=== PATIENT | male | born 1950 | race Caucasian/White ===

== ENCOUNTER 2020-09-24 09:24 | Outpatient (CLI) | payer MEDICARE | END 2020-09-24 09:25 | disposition home or self-care (01) | LOC: CSHMRI 09:24 | PROVIDERS: ATTEND Nurse Practitioner | DX: M47.816 Spondylosis without myelopathy or radiculopathy, lumbar region (principal); S32.000A Wedge compression fracture of unspecified lumbar vertebra, initial encounter for closed fracture; M48.062 Spinal stenosis, lumbar region with neurogenic claudication; M62.49 Contracture of muscle, multiple sites; S32.010A Wedge compression fracture of first lumbar vertebra, initial encounter for closed fracture | CPT/HCPCS: 72148 ==

== ENCOUNTER 2022-04-08 08:54 | Day surgery (SDC) | payer MEDICARE ==
[2022-04-06 14:57] VITALS: BMI 38.3
[2022-04-08] MEDS ORDERED: PROPOFOL 20 ML ONE ×3 (11:20→12:10)
== END 2022-04-08 12:48 | disposition home or self-care (01) ==
LOC: CSHSDC 08:54
PROVIDERS: ATTEND Internal Medicine Gastroenterology
PROC: 0DBL8ZZ Excision of Transverse Colon, Via Natural or Artificial Opening Endoscopic (ICD-10-PCS; principal; 2022-04-08)
DX: Z12.11 Encounter for screening for malignant neoplasm of colon (principal); D37.4 Neoplasm of uncertain behavior of colon; K62.1 Rectal polyp; K64.8 Other hemorrhoids; K57.30 Diverticulosis of large intestine without perforation or abscess without bleeding; K21.9 Gastro-esophageal reflux disease without esophagitis; I10 Essential (primary) hypertension; I25.10 Atherosclerotic heart disease of native coronary artery without angina pectoris; E78.5 Hyperlipidemia, unspecified; E66.9 Obesity, unspecified; Z95.5 Presence of coronary angioplasty implant and graft; Z68.38 Body mass index [BMI] 38.0-38.9, adult; Z86.010 Personal history of colon polyps; Z85.038 Personal history of other malignant neoplasm of large intestine
CPT/HCPCS: 88305; J2704

== ENCOUNTER 2022-05-20 06:32 | Day surgery (SDC) | payer MEDICARE ==
[2022-05-18 16:15] VITALS: BMI 39.4
[2022-05-20] MEDS ORDERED: Lidocaine 2% MPF 10 ML AMP (For Epidural Use) ONE (07:13)
[2022-05-20] MEDS ORDERED: PROPOFOL 60 ML ONE (07:13)
[2022-05-20] MEDS ORDERED: Metoprolol Tartrate 5 MG/5 ML VIAL ONE (07:36)
[2022-05-20] MEDS ORDERED: PHENYLEPHRINE-NS 100 MCG/ML 10 ML SYRINGE ONE (08:37)
== END 2022-05-20 09:28 | disposition home or self-care (01) ==
LOC: CSHSDC 06:32
PROVIDERS: ATTEND Internal Medicine Gastroenterology
PROC: 0DBL8ZZ Excision of Transverse Colon, Via Natural or Artificial Opening Endoscopic (ICD-10-PCS; principal; 2022-05-20)
DX: D12.3 Benign neoplasm of transverse colon (principal); K64.9 Unspecified hemorrhoids; I10 Essential (primary) hypertension; E78.5 Hyperlipidemia, unspecified; I25.10 Atherosclerotic heart disease of native coronary artery without angina pectoris; K21.9 Gastro-esophageal reflux disease without esophagitis; E66.9 Obesity, unspecified; Z88.2 Allergy status to sulfonamides; Z88.8 Allergy status to other drugs, medicaments and biological substances; Z68.39 Body mass index [BMI] 39.0-39.9, adult
CPT/HCPCS: 88305; J2704

== ENCOUNTER 2024-03-07 10:11 | Outpatient (CLI) | payer MEDICARE | END 2024-03-07 10:12 | disposition home or self-care (01) | LOC: CSHRAD 10:11 | PROVIDERS: ATTEND Nurse Practitioner | DX: Z01.818 Encounter for other preprocedural examination (principal); M23.91 Unspecified internal derangement of right knee; M25.561 Pain in right knee; M62.461 Contracture of muscle, right lower leg; M17.11 Unilateral primary osteoarthritis, right knee | CPT/HCPCS: 71045 ==

== ENCOUNTER 2024-03-28 08:24 | Outpatient (CLI) | payer MEDICARE | END 2024-03-28 08:25 | disposition home or self-care (01) | LOC: CSHMRI 08:24 | PROVIDERS: ATTEND Nurse Practitioner | DX: M23.91 Unspecified internal derangement of right knee (principal); M25.561 Pain in right knee; M62.461 Contracture of muscle, right lower leg; M23.303 Other meniscus derangements, unspecified medial meniscus, right knee; M94.8X8 Other specified disorders of cartilage, other site ==